=== PATIENT | male | born 1940 | race Caucasian/White ===

== ENCOUNTER 2024-07-05 19:15 | Emergency (ER) | payer OTHER, MEDICARE ==
[~2024-07-05] VITALS: Ht 175.3 cm; Wt 89.8 kg
[2024-07-05 20:03] LABS: BASOPHILS 1.1 % (0-2); EOSINOPHILS 0.8 % (0-6); HEMOGLOBIN 10.3 g/dL (12.0-18.0); LYMPHOCYTES 10.2 % (24-44); MCH 27.7 (27-36); MCHC 33.3 g/dl (30-36); MCV 83.4 fl (81-99); MONOCYTES 10.7 % (0-12); NEUTROPHILS 77.2 % (39-80); PLATELET COUNT 345 K/uL (140-440); RBC 3.72 M/ul (4.3-5.7); RDW 17.7 (10.5-15.0)
[2024-07-05 20:11] LABS: ALBUMIN 3.4 g/dL (3.4-5.0); ALBUMIN/GLOBULIN RATIO 0.87 (1.1-2.4); ALCOHOL, MEDICAL <3 ng/dL (<3); ALKALINE PHOSPHATASE 139 U/L (46-116); ALT (SGPT) 30 U/L (14-59); ANION GAP 12.9 (7-21); AST (SGOT) 25 U/L (15-37); BILIRUBIN, TOTAL 0.5 ng/dL (0.2-1.0); BUN/CREATININE RATIO 17.52 (6.0-28.6); CALCIUM 8.8 mg/dL (8.5-10.1); CARBON DIOXIDE 23 mmol/L (21-32); CHLORIDE 95 mmol/L (98-107); CREATININE, SERUM 0.97 mg/dL (0.70-1.30); GLOMERULAR FILTRATION RATE,EST 78 mL/min (>60); POTASSIUM 3.9 mmol/L (3.5-5.1); PROTEIN, TOTAL 7.3 g/dL (6.4-8.2); UREA NITROGEN 17 mg/dL (7-18)
[2024-07-05] MEDS ORDERED: MORPHINE SULFATE 4 MG/ML VIAL IV ONE (20:15)
[2024-07-05 21:04] LABS: BILIRUBIN, URINE NEGATIVE (negative); BLOOD/HGB, URINE NEGATIVE (Negative); KETONE, URINE NEGATIVE (Negative); LEUK ESTERASE, URINE NEGATIVE (negative); NITRITE, URINE NEGATIVE (negative); PH, URINE 5.5 (5-7)
[2024-07-05 21:19] LABS: AMPHETAMINES, URINE NEGATIVE (NEGATIVE); BARBITURATES, URINE NEGATIVE (NEGATIVE); BENZODIAZEPINE, URINE NEGATIVE (NEGATIVE); BUPRENORPHINE, URINE NEGATIVE (NEGATIVE); CANNABINOID, URINE NEGATIVE (NEGATIVE); COCAINE, URINE NEGATIVE (NEGATIVE); ECSTASY, URINE NEGATIVE (NEGATIVE); FENTANYL, URINE NEGATIVE (NEGATIVE); METHADONE, URINE NEGATIVE (NEGATIVE); OPIATES, URINE NEGATIVE (NEGATIVE); OXYCODONE, URINE POSITIVE (NEGATIVE); PHENCYCLIDINE, URINE NEGATIVE (NEGATIVE)
[2024-07-05 21:40] VITALS: BP 151/81
== END 2024-07-05 22:00 | disposition home or self-care (01) ==
LOC: ED 19:15
PROVIDERS: Family Medicine
DX: S42.292A Other displaced fracture of upper end of left humerus, initial encounter for closed fracture (principal); F03.90 Unspecified dementia, unspecified severity, without behavioral disturbance, psychotic disturbance, mood disturbance, and anxiety; I10 Essential (primary) hypertension; W18.30XA Fall on same level, unspecified, initial encounter
CPT/HCPCS: 36415; 70450; 72125; 73030; 73080; 80053; 80307; 81003; 85025; 96374; 99284-25; G0480; J2270

== ENCOUNTER 2024-07-12 04:00 | Emergency (ER) | payer OTHER, MEDICARE ==
[~2024-07-12] VITALS: Ht 175.3 cm; Wt 88.9 kg
[2024-07-12] MEDS ORDERED: FLOMAX0.4 MG PO (04:09)
[2024-07-12] MEDS ORDERED: SPIRONOLACTONE25 MG PO (04:10)
[2024-07-12] MEDS ORDERED: BAYER CHEWABLE81 MG PO (04:10)
[2024-07-12] MEDS ORDERED: NORVASC5 MG PO (04:10)
[2024-07-12] MEDS ORDERED: METOPROLOL SUCC25 MG PO (04:11)
[2024-07-12] MEDS ORDERED: SERTRALINE HCL50 MG PO (04:11)
[2024-07-12] MEDS ORDERED: MELATONIN3 MG PO (04:12)
[2024-07-12] MEDS ORDERED: MIRALAX17 GM PO (04:12)
[2024-07-12] MEDS ORDERED: LOSARTAN POTASS50 MG PO (04:13)
[2024-07-12] MEDS ORDERED: ASCORBIC ACID500 M2 PO (04:14)
[2024-07-12] MEDS ORDERED: K-TAB ER20 MEQ PO (04:15)
[2024-07-12] MEDS ORDERED: LIPITOR40 MG PO (04:15)
[2024-07-12] MEDS ORDERED: TIZANIDINE HCL2 MG PO (04:16)
[2024-07-12] MEDS ORDERED: OXYCODONE HCL5 M1 PO (04:16)
[2024-07-12 04:21] LABS: BASOPHILS 0.5 % (0-2); EOSINOPHILS 2.6 % (0-6); HEMATOCRIT 29.4 % (35.0-50.0); HEMOGLOBIN 9.7 g/dL (12.0-18.0); LYMPHOCYTES 19.9 % (24-44); MCHC 32.8 g/dl (30-36); MCV 82.2 fl (81-99); MONOCYTES 9.7 % (0-12); NEUTROPHILS 67.3 % (39-80); PLATELET COUNT 272 K/uL (140-440); RBC 3.58 M/ul (4.3-5.7); RDW 18.3 (10.5-15.0)
[2024-07-12 04:27] LABS: INR 1.02 (0.80-1.30); PROTIME 13.3 Sec (11.2-14.2)
[2024-07-12 04:33] LABS: ALBUMIN 3.3 g/dL (3.4-5.0); ALBUMIN/GLOBULIN RATIO 0.97 (1.1-2.4); ANION GAP 7.7 (7-21); BILIRUBIN, TOTAL 0.6 ng/dL (0.2-1.0); BUN/CREATININE RATIO 13.63 (6.0-28.6); CALCIUM 8.7 mg/dL (8.5-10.1); CREATININE, SERUM 0.88 mg/dL (0.70-1.30); POTASSIUM 3.7 mmol/L (3.5-5.1); PROTEIN, TOTAL 6.7 g/dL (6.4-8.2)
[2024-07-12 04:51] LABS: BILIRUBIN, URINE NEGATIVE (negative); BLOOD/HGB, URINE TRACE-I (Negative); KETONE, URINE NEGATIVE (Negative); LEUK ESTERASE, URINE NEGATIVE (negative); NITRITE, URINE NEGATIVE (negative); PH, URINE 6.5 (5-7)
[2024-07-12 04:57] LABS: EPITHELIAL CELLS, URINE SQUAMOUS 1+ /lpf (0-1+)
[2024-07-12 04:58] LABS: BACTERIA, URINE RARE /hpf (negative); CASTS, URINE NONE SEEN \\lpf; COLLECTION TYPE, URINE CLEAN CATCH; CRYSTALS, URINE NONE SEEN (0-1+); REFLEX CULTURE, URINE No (No); WHITE BLOOD CELLS, URINE 0-1 /HPF (0-5)
[2024-07-12 05:52] VITALS: BP 157/85
== END 2024-07-12 06:20 | disposition home or self-care (01) ==
LOC: ED 04:00
PROVIDERS: Internal Medicine
DX: S70.02XA Contusion of left hip, initial encounter (principal); S70.12XA Contusion of left thigh, initial encounter; S42.292G Other displaced fracture of upper end of left humerus, subsequent encounter for fracture with delayed healing; F03.90 Unspecified dementia, unspecified severity, without behavioral disturbance, psychotic disturbance, mood disturbance, and anxiety; Z86.73 Personal history of transient ischemic attack (TIA), and cerebral infarction without residual deficits; I10 Essential (primary) hypertension; Z79.82 Long term (current) use of aspirin; Z79.01 Long term (current) use of anticoagulants; Z79.899 Other long term (current) drug therapy; W18.30XA Fall on same level, unspecified, initial encounter; W19.XXXD Unspecified fall, subsequent encounter
CPT/HCPCS: 36415; 70450; 71045; 72125; 73030; 73502; 80053; 81001; 83735; 85025; 85610; 99284-25; G0480